=== PATIENT | female | born 1955 | race Hispanic/Latino ===

== ENCOUNTER 2024-06-17 11:54 | Emergency (ER) | payer SELFPAY ==
[~2024-06-17] VITALS: Ht 152.4 cm; Wt 70.3 kg
[2024-06-17] MEDS: acetaMINOPHEN 325 MG TAB PO ONE (12:30)
[2024-06-17 12:43] LABS: BASOPHILS # (AUTO) 0.04 K/uL (0.00-0.20); BASOPHILS % (AUTO) 0.3 % (0.0-5.0); EOSINOPHILS # (AUTO) 0.02 K/uL (0.00-0.70); EOSINOPHILS % (AUTO) 0.2 % (0.0-8.0); HEMATOCRIT 42.7 % (36-48); IMMATURE GRANULOCYTE ABSOLUTE 0.04 K/uL (0-1); LYMPHOCYTES # (AUTO) 0.6 K/uL (1.0-4.8); LYMPHOCYTES % (AUTO) 4.8 % (21.0-51.0); MEAN CORPUSCULAR HEMOGLOBIN 29.6 pg (27.0-33.0); MEAN CORPUSCULAR VOLUME 87.1 fL (79-99); MONOCYTES # (AUTO) 0.7 K/uL (0.1-1.0); MONOCYTES % (AUTO) 5.2 % (3.0-13.0); NEUTROPHILS # (AUTO) 11.2 K/uL (1.8-7.7); NEUTROPHILS % (AUTO) 89.2 % (40.0-77.0); PLATELET COUNT (AUTO) 260 K/uL (130-400); RED CELL DISTRIBUTION WIDTH 12.8 % (11.0-15.5); WHITE BLOOD COUNT (AUTO) 12.6 K/uL (4.8-10.8)
[2024-06-17 12:49] LABS: CREATININE 0.8 mg/dL (0.5-1.0); POTASSIUM 4.2 mmol/L (3.5-5.1)
[2024-06-17 12:54] LABS: ALBUMIN 3.8 g/dL (3.5-5.0); BILIRUBIN,TOTAL 0.7 mg/dL (0.2-1.0); TOTAL PROTEIN, SERUM 7.9 g/dL (6.0-8.3)
[2024-06-17 13:28] LABS: BAND NEUTROPHILS % (MANUAL) 20 % (0-2); LYMPHOCYTES % (MANUAL) 9 % (22-44); MONOCYTES % (MANUAL) 6 % (2-9); SEGMENTED NEUTROPHILS % 65 % (40-70); TOTAL CELLS COUNTED 100
[2024-06-17 13:29] LABS: MAN.DIFF COMMENT-IMPRESSION MANUAL DIFFERENTIAL; PLATELET MORPHOLOGY COMMENT ADEQUATE; WBC MORPHOLOGY CONSISTENT W/DIFF
[2024-06-17] MEDS: PROMETHAZINE HCL 25 MG/ML 1ML AMPULE IM ONE (13:33)
[2024-06-17] MEDS: MORPHINE 4 MG SYG IVP ONE (13:33)
[2024-06-17] MEDS: 0.9%NACL 1000ML 1,000 ML IV ONE (13:33)
[2024-06-17] MEDS ORDERED: METR375C2 PO (17:16)
[2024-06-17 18:03] VITALS: BP 110/54; PULSE 76; RESP 16; O2SAT 98
== END 2024-06-17 18:05 | disposition home or self-care (01) ==
LOC: EDH 11:54
DX: R10.12 Left upper quadrant pain (principal); R11.10 Vomiting, unspecified; R19.7 Diarrhea, unspecified; E11.9 Type 2 diabetes mellitus without complications; I10 Essential (primary) hypertension; E78.00 Pure hypercholesterolemia, unspecified; Z79.899 Other long term (current) drug therapy
CPT/HCPCS: 99285; 96374; 71045; 96361; 84484; 80053; 83690; 85025; 83605 ×2; 36415; 93005; 96372; J7030; J2550; J2270